=== PATIENT | female | born 1970 | race Asian ===

== ENCOUNTER 2020-08-26 09:10 | Outpatient (CLI) | payer MEDICAID ==
[~2020-08-26] VITALS: Ht 154.9 cm; Wt 58.1 kg
[2020-08-26 09:42] VITALS: BP 141/87
--- NOTE | 2020-08-26 11:14 | Consultation ---
DATE OF CONSULTATION: 08/26/2020 GASTROENTEROLOGY CONSULTATION CONSULTING PHYSICIAN: Jitendra Weiss MD. CHIEF COMPLAINT: Referred for screening colonoscopy. PAST MEDICAL HISTORY: None. PAST SURGICAL HISTORY: None. MEDICATIONS: None. FAMILY HISTORY: Noncontributory. SOCIAL HISTORY: The patient drinks occasionally. Denies any IV drug abuse. Quit smoking about 20 years ago. ALLERGIES: No known allergies. REVIEW OF SYSTEMS: Negative. PHYSICAL EXAMINATION: VITAL SIGNS: Temperature 97.6, blood pressure 120/60, pulse 72, respirations 20. Height is 5 feet 1 inch. Weight is 128. HEENT: Normocephalic and atraumatic. Sclerae are anicteric. NECK: Supple. No evidence of obvious lymphadenopathy. CARDIOVASCULAR: Regular rate and rhythm. Plus S1-S2. LUNGS: Clear to auscultation bilaterally. ABDOMEN: Positive bowel sounds. Soft and nontender. No rebound. No guarding. No peritoneal sign. EXTREMITIES: No cyanosis, no clubbing, no edema. ASSESSMENT AND PLAN: This is a 49-year-old female referred for screening colonoscopy. The patient was given instruction for colonoscopy. Risks and benefits of procedure was explained to her. We will schedule her as soon as authorization is obtained. Jitendra Weiss M.D. DR: JOHN JOB#: [id number] CC:
== END 2020-08-26 11:10 | disposition home or self-care (01) ==
LOC: PAN 09:10
DX: Z00.00 Encounter for general adult medical examination without abnormal findings (principal); Z87.891 Personal history of nicotine dependence
CPT/HCPCS: 99203